=== PATIENT | male | born 1945 | race African-American/Black ===

== ENCOUNTER → 2017-05-10 | Day surgery (SDC) | payer MEDICARE, BC ==
[~2017-05-10] MED LIST: ACETAMINOPHEN650 M4 PO; ALEVE220 M1 PO; ALLER-EASE180 MG PO; AMLODIPINE BESY10 MG PO; AMLODIPINE BESYL5 MG PO; ASPIRIN PO; CARAFATE1 GM PO; CETIRIZINE HCL10 MG PO; CRESTOR PO; DOCUSATE SODIU100 MG PO; FLEXERIL PO; HYDROCODON-ACE1 EAC9 PO; HYTRIN PO; LIPITOR40 MG PO; LISINOPRIL PO; LOVENOX100 MG/ML INJ; MEDROL PO; PHENERGAN25 M1 PO; POLYGESIC 5/5001 CAP PO; PRILOSEC PO; PROTONIX PO; RAPAFLO8 MG PO; SARAFEM20 MG PO; SIMVASTATIN40 MG PO; STOOL SOFTENER50 MG PO; TOPROL XL PO; TYLENOL325 M1; WAL-DRYL25 MG PO; [UNRECOGNIZED DRUG - OTHER]
--- NOTE | ~2017-05-10 | OR ---
Unit #: [id number] #: [id number] Patient: HUI MCDONNELL [id number] [address] [place], [place] [address] [id number] O MR#: [id number] NAME: HUI MCDONNELL ROOM: Date of Procedure: 05/10/2017 Admission Date: 05/10/2017 Surgeon: Caleb Naik M.D. : 1945 Attending Physician: Caleb Naik M.D. Primary Care Physician: Antonia Macario M.D. OPERATIVE REPORT PREOPERATIVE DIAGNOSIS Surveillance colonoscopy. POSTOPERATIVE DIAGNOSIS Surveillance colonoscopy. PROCEDURE PERFORMED Colonoscopy to anastomosis (hepatic flexure). ANESTHESIA Monitored anesthesia care. FINDINGS The patient had normal colon except for moderate internal hemorrhoids. SPECIMENS None. COMPLICATIONS None apparent. CONDITION The patient tolerated the procedure well. INDICATIONS FOR PROCEDURE The patient is a 71-year-old black male, who is status post right hemicolectomy for large tubulovillous adenoma. He presents at this time for surveillance colonoscopy. DESCRIPTION OF PROCEDURE After obtaining informed consent, the patient was brought to the endoscopy suite and after adequate monitored anesthesia care, had the colonoscope placed through the anus and slowly advanced with the lumen always in view to the level of the anastomosis. This was present in the area of the hepatic flexure. The anastomosis was widely patent and no abnormality was seen. The colonoscope was slowly pulled back. The colon was circumferentially visualized. There was no abnormality seen in the transverse colon, splenic flexure, descending colon, sigmoid colon, or rectum. On retroflexing in the rectum to the anorectal junction, there were some moderate internal hemorrhoids. The scope was removed without difficulty. The patient tolerated the procedure well and went from the endoscopy suite to recovery area in stable condition. Unit #: [id number] #: [id number] Patient: HUI MCDONNELL RECOMMENDATIONS High-fiber diet, lots of liquids, tucks or wipes p.r.n. Follow up p.r.n. Dictated by... Caleb Naik M.D. JPG/isabell TD: 05/10/2017 12:45 JOB #: [id number] CC: [facility] [place] [facility] Antonia Macario M.D. OPERATIVE REPORT Page 1 of 1 X Caleb Naik MD PROCEDURE OPERATIVE NOTE
== END | disposition home or self-care (01) ==
LOC: COPS 10:07
DX: Z12.11 Encounter for screening for malignant neoplasm of colon (principal); K64.8 Other hemorrhoids; N40.0 Benign prostatic hyperplasia without lower urinary tract symptoms; I25.10 Atherosclerotic heart disease of native coronary artery without angina pectoris; K21.9 Gastro-esophageal reflux disease without esophagitis; E78.00 Pure hypercholesterolemia, unspecified; E78.5 Hyperlipidemia, unspecified; I11.9 Hypertensive heart disease without heart failure; G47.30 Sleep apnea, unspecified; Z86.010 Personal history of colon polyps; Z87.891 Personal history of nicotine dependence; Z86.73 Personal history of transient ischemic attack (TIA), and cerebral infarction without residual deficits; Z86.711 Personal history of pulmonary embolism; Z88.0 Allergy status to penicillin; Z88.8 Allergy status to other drugs, medicaments and biological substances; Z79.82 Long term (current) use of aspirin; Z79.899 Other long term (current) drug therapy; Z95.1 Presence of aortocoronary bypass graft; Z98.1 Arthrodesis status; Z90.49 Acquired absence of other specified parts of digestive tract; Z98.890 Other specified postprocedural states
CPT/HCPCS: J2250